=== PATIENT | male | born 1995 | race Caucasian/White ===

== ENCOUNTER 2016-06-15 06:16 | Emergency (ER) | payer BC ==
[~2016-06-15] VITALS: Ht 177.8 cm; Wt 63.0 kg
[2016-06-15] MEDS ORDERED: MORPHINE SULFATE 4 MG/ML, 1ML IVPush PRN (07:00)
[2016-06-15] MEDS ORDERED: SODIUM CHLORIDE FLUSH 10ML SYR IVF ONE (07:00)
[2016-06-15] MEDS ORDERED: DEXAMETHASONE 4 MG/ML, 1ML IVPush ONE (07:00)
[2016-06-15] MEDS ORDERED: ONDANSETRON 2MG/ML, 2ML IVPush ONE (07:00)
[2016-06-15] MEDS ORDERED: SODIUM CHLORIDE 0.9% 1,000ML IVBOLUS ONE (07:00)
[2016-06-15] MEDS ORDERED: MORPHINE SULFATE 4 MG/ML, 1ML ONE (07:22)
[2016-06-15] MEDS ORDERED: ONDANSETRON 2MG/ML, 2ML ONE (07:22)
[2016-06-15 08:06] LABS: BLOOD UREA NITROGEN 12 mg/dL (7-18)
[2016-06-15 08:14] LABS: ASPARTATE AMINO TRANSFERASE 77 U/L (15-37)
[2016-06-15] MEDS ORDERED: OMNIPAQUE 350 MG/ML, 100ML BOTTLE ONE (08:25)
[2016-06-15 08:46] LABS: DIFF TOTAL CELLS COUNTED 100 CELL DIFF
[2016-06-15 08:48] LABS: VERIFY COUNTS? YES
[2016-06-15] MEDS ORDERED: HYDR-3138 PO (09:25)
[2016-06-15] MEDS ORDERED: PRED20TA PO (09:26)
[2016-06-15] MEDS ORDERED: CEFU250T66 PO (09:27)
[2016-06-15 09:45] VITALS: BP 113/73
== END 2016-06-15 09:47 | disposition home or self-care (01) ==
LOC: ED 06:54
DX: B27.00 Gammaherpesviral mononucleosis without complication (principal)
CPT/HCPCS: 36415; 70491; 80053; 85025; 96361; 96374; 96375; 99285; J2405; J7030; Q9967

== ENCOUNTER 2016-06-15 16:33 | Inpatient (IN) | payer BC ==
[~2016-06-15] VITALS: Ht 177.8 cm; Wt 64.0 kg
[~2016-06-15 16:33] MED LIST: CEFU250T66 PO; HYDR-3138 PO; PRED20TA PO
[2016-06-15] MEDS ORDERED: SODIUM CHLORIDE FLUSH 10ML SYR IVF ONE (17:00)
[2016-06-15] MEDS ORDERED: DEXAMETHASONE 4 MG/ML, 1ML IVPush ONE (17:00)
[2016-06-15] MEDS ORDERED: SODIUM CHLORIDE 0.9% 1,000ML IVBOLUS ONE (17:00)
[2016-06-15] MEDS ORDERED: DIPHENHYDRAMINE 50 MG/ML, 1ML IVPush ONE (17:00)
[2016-06-15] MEDS ORDERED: DIPHENHYDRAMINE 50 MG/ML, 1ML ONE (17:29)
[2016-06-15] MEDS ORDERED: DEXAMETHASONE 10 MG in SODIUM CHLORIDE 0.9% 50 ML IV ONE (17:30)
[2016-06-15] MEDS ORDERED: ACETAMINOPHEN 325 MG TABLET PO PRN (20:00)
[2016-06-15] MEDS ORDERED: ONDANSETRON 2MG/ML, 2ML IVP PRN (20:00)
[2016-06-15] MEDS ORDERED: ONDANSETRON ODT 4 MG PO PRN (20:00)
[2016-06-15 20:46] VITALS: BP 119/72
[2016-06-15] MEDS: KETOROLAC 30 MG/1 ML IVPush SCH (22:00)
[2016-06-15] MEDS: NS + 20MEQ KCL 1,000 ML IV SCH (22:22)
[2016-06-16 02:14] VITALS: BP 123/75
[2016-06-16] MEDS: KETOROLAC 30 MG/1 ML IVPush SCH ×3 (05:52→17:55)
[2016-06-16] MEDS: NS + 20MEQ KCL 1,000 ML IV SCH ×3 (05:54→22:06)
[2016-06-16 08:36] VITALS: BP 117/75
[2016-06-16] MEDS ORDERED: BENZOCAINE 20% SPRAY 0.5ML TP SCH (11:00)
[2016-06-16] MEDS: BENZOCAINE 20% SPRAY 0.5ML TP SCH ×2 (11:28→18:45)
[2016-06-16 14:15] VITALS: BP 109/71
[2016-06-16] MEDS ORDERED: SODIUM CHLORIDE NASAL SPRAY 45ML BOTTLE NAS PRN (16:30)
[2016-06-16 18:38] VITALS: BP 106/69
[2016-06-16] MEDS: LIDOCAINE 2% VISCOUS, 100ML MM SCH (21:21)
[2016-06-16] MEDS: DIPHENHYDRAMINE 25 MG CAPSULE PO SCH (21:22)
[2016-06-16] MEDS: OXYcodone IR 5MG TABLET PO PRN (22:32)
[2016-06-17 00:32] VITALS: BP 100/73
[2016-06-17] MEDS: BENZOCAINE 20% SPRAY 0.5ML TP SCH ×4 (00:48→20:57)
[2016-06-17] MEDS: KETOROLAC 30 MG/1 ML IVPush SCH ×4 (00:48→18:00)
[2016-06-17] MEDS: OXYcodone IR 5MG TABLET PO PRN ×4 (05:09→21:09)
[2016-06-17] MEDS: BENZOCAINE AEROSOL SPRAY 20%, 60ML TP SCH ×2 (05:30→09:34)
[2016-06-17] MEDS: NS + 20MEQ KCL 1,000 ML IV SCH (06:03)
[2016-06-17 06:31] VITALS: BP 110/69
[2016-06-17] MEDS: LIDOCAINE 2% VISCOUS, 100ML MM SCH ×2 (08:34→21:00)
[2016-06-17] MEDS ORDERED: DIPHENHYDRAMINE 12.5MG/5ML, 10ML UDC PO PRN (09:30)
[2016-06-17 13:02] VITALS: BP 108/66
[2016-06-17] MEDS: DIPHENHYDRAMINE 25 MG CAPSULE PO PRN (14:57)
[2016-06-17 19:14] VITALS: BP 95/62
[2016-06-17] MEDS: DIPHENHYDRAMINE 25 MG CAPSULE PO SCH (20:57)
[2016-06-18] MEDS: KETOROLAC 30 MG/1 ML IVPush SCH ×3 (00:18→11:55)
[2016-06-18 00:27] VITALS: BP 114/57
[2016-06-18] MEDS: OXYcodone IR 5MG TABLET PO PRN ×2 (01:33→09:19)
[2016-06-18 06:44] VITALS: BP 121/77
[2016-06-18 06:50] VITALS: BP 120/63
[2016-06-18] MEDS: BENZOCAINE 20% SPRAY 0.5ML TP SCH ×2 (07:00→11:00)
[2016-06-18] MEDS: LIDOCAINE 2% VISCOUS, 100ML MM SCH (07:24)
[2016-06-18] MEDS ORDERED: IBUP800T PO (11:58)
[2016-06-18] MEDS ORDERED: BENZ1SPR TP (11:58)
[2016-06-18] MEDS ORDERED: OXYC5TAB3 PO (11:58)
[2016-06-18] MEDS: DIPHENHYDRAMINE 25 MG CAPSULE PO PRN (12:07)
== END 2016-06-18 13:00 | disposition home or self-care (01) | DRG 865 ==
LOC: ED 18:59 → EDIP 19:00 → INTOOBSV 19:00 → ED 19:47 → 3NE 20:39 → OBSVTOIN 06-17 15:00
PROVIDERS: ADMIT Student in an Organized Health Care Education/Training Program; ATTEND Student in an Organized Health Care Education/Training Program
DX: B27.90 Infectious mononucleosis, unspecified without complication (principal); J96.01 Acute respiratory failure with hypoxia; F12.10 Cannabis abuse, uncomplicated; Z88.5 Allergy status to narcotic agent
CPT/HCPCS: 96365; 96375; G0378; J1100; J1885; J3480; J1200; J7030; J7512; Q0163

== ENCOUNTER 2018-09-03 01:45 | Emergency (ER) | payer BC ==
[~2018-09-03] VITALS: Ht 180.3 cm; Wt 66.0 kg
[~2018-09-03 01:45] MED LIST changes: +BENZ1SPR TP; -HYDR-3138 PO; +HYDR-3237 PO; +IBUP-1223 PO; +OXYC5TAB3 PO
[2018-09-03] MEDS ORDERED: DIPHENHYDRAMINE 25 MG CAPSULE ONE (02:10)
[2018-09-03] MEDS ORDERED: DIPHENHYDRAMINE 25 MG CAPSULE PO ONE (02:30)
--- NOTE | 2018-09-03 02:40 | NUR ---
PT MEDICATED ORDERED.
--- NOTE | 2018-09-03 03:14 | NUR ---
patient discharged with prescriptions and instruction. verbalized understanding.
[2018-09-03 03:17] VITALS: BP 123/78
== END 2018-09-03 03:19 | disposition home or self-care (01) ==
LOC: ED 03:00
DX: L50.0 Allergic urticaria (principal)
CPT/HCPCS: 99283; J7512; Q0163